=== PATIENT | female | born 1970 | race American Indian/Alaskan Native ===

== ENCOUNTER 2017-09-09 12:24 | Inpatient (IN) | payer OTHER ==
[2017-09-09] MEDS ORDERED: CATAPRES PO ONE (12:35)
[2017-09-09 13:15] LABS: Basophils # (Auto) 0.1 K/mm3 (0.0-0.1); Basophils % (Auto) 1.2 % (0.0-1.8); Eosinophils # (Auto) 0.2 K/mm3 (0.0-0.4); Eosinophils % (Auto) 2.4 % (0.0-4.3); Hematocrit 43.9 % (30.3-42.9); Hemoglobin 14.8 gm/dl (10.1-14.3); Lymphocytes # (Auto) 2.5 K/mm3 (1.2-5.4); Lymphocytes % (Auto) 36.5 % (13.4-35.0); Mean Corpuscular HGB Conc 34 % (30-34); Mean Corpuscular Hemoglobin 28 pg (28-32); Mean Corpuscular Volume 84 fl (79-97); Monocytes # (Auto) 0.5 K/mm3 (0.0-0.8); Monocytes % (Auto) 6.7 % (0.0-7.3); Platelet Count 305 K/mm3 (140-440); Red Blood Count 5.24 M/mm3 (3.65-5.03); Red Cell Distribution Width 13.7 % (13.2-15.2)
[2017-09-09 13:26] LABS: INR 0.85 (0.87-1.13)
[2017-09-09 13:41] LABS: Alanine Aminotransferase 13 units/L (7-56); Albumin 3.9 g/dL (3.9-5); BUN/Creatinine Ratio 20; Blood Urea Nitrogen 12 mg/dL (7-17); Calcium 8.8 mg/dL (8.4-10.2); Hemolysis Index 38
--- NOTE | 2017-09-09 13:58 | XRay Report ---
ROUTINE CHEST, TWO VIEWS: HISTORY: chest pain. Thoracic surgical changes are identified since 01/28/16, correlate with history. The trachea, heart, mediastinal contour, lung briggs and bony thorax are unremarkable. IMPRESSION: No acute cardiopulmonary process.
--- NOTE | 2017-09-09 14:16 | Cat Scan Report ---
FINAL REPORT PROCEDURE: CT HEAD/BRAIN WO CON TECHNIQUE: Computerized tomography of the head was performed without contrast material. HISTORY: headache, htn, left sided numb x 3 days COMPARISON: No prior studies are available for comparison. FINDINGS: No CT evidence of intracranial mass, hemorrhage, acute territorial infarction, or hydrocephalus. The intracranial arteries are symmetric in density. Calvarium is intact. Visualized paranasal sinuses and mastoids are aerated. Mild right ethmoid sinus mucosal thickening. There is fluid in the left mastoid air cells. IMPRESSION: No CT evidence of acute intracranial abnormality. Fluid in the left mastoid air cells. Correlate clinically to exclude infectious process
--- NOTE | 2017-09-09 14:35 | Emergency Department Report ---
ED Headache HPI - General Chief Complaint: Headache Stated Complaint: QUINTANA & CP Time Seen by Provider: 09/09/17 14:14 Source: patient, old records Exam Limitations: no limitations - History of Present Illness Initial Comments: 46-year-old female with a past medical history hypertension, smoker, COPD, CAD, stent, and single-vessel bypass presents to the hospital complaining of headache , hypertension, and chest. The last 3 days patient has had intermittent numbness to her left arm and left leg. This morning she developed a bad posterior headache rated 8/10 in intensity and left-sided chest heaviness. Patient states she has chronic intermittent left upper chest pain since her CABG surgery in the past. Worse with palpation. Denies alleviating factors. Patient denies nausea, vomiting, or shortness of breath. Diaphoresis at night reported. Patient's currently on her menstrual cycle. Patient has been noncompliant with all her medications the last 2 months. She does not know any of the names of her medications but does still take aspirin 81 mg. Poor stat last time she had a heart intake she had similar chest pain. Patient's declining 0.2 prior to my evaluation with improvement in blood pressure, headache, and chest pain but they are still present. 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 During this hospitalization cardiac enzymes have been negative and initial EKG with no acute changes. Cardiology was consulted and she underwent stress test that was negative for ischemia, but a repeat EKG showed deep anterolateral T-wave inversion and she continued experienced chest pain, cardiology decided to obtain cardiac CTA that revealed a questionable proximal LAD stenosis. For definitive diagnosis she underwent left cardiac catheterization that showed 99% ostial LAD stenosis for which patient was transferred emergently to [facility] for single-vessel bypass; started on heparin drip. Allergies/Adverse Reactions: Allergies No Known Allergies Allergy (Verified 09/09/17 12:25) Home Medications: Ambulatory Orders No Known Home Medications [No Reported Home Medications] 09/09/17 ED Review of Systems ROS: Stated complaint: QUINTANA & CP Other details as noted in HPI Comment: All other systems reviewed and negative ED Past Medical Hx - Past Medical History Hx Hypertension: Yes Hx Heart Attack/AMI: Yes Hx Congestive Heart Failure: No Hx Diabetes: No Hx Renal Disease: No Hx Asthma: No Hx COPD: No Additional medical history: CAD - Surgical History Hx Coronary Stent: Yes (last stent 2014) Hx Pacemaker: No Additional Surgical History: Open heart - Social History Smoking Status: Current Every Day Smoker Substance Use Type: None - Medications Home Medications: Home Medications Medication Instructions Recorded Confirmed Last Taken Type No Known Home Medications [No 09/09/17 09/09/17 Unknown History Reported Home Medications] ED Physical Exam - General Limitations: No Limitations - Other Other exam information: General: No limitations, patient is alert in no acute distress Head exam: Atraumatic, normocephalic Eyes exam: Normal appearance ENT: Moist mucous membrane, normal oropharynx Neck exam: Normal inspection, full range of motion, no meningismus nontender Respiratory exam: Mild wheezing right lung field. No tachypnea or accessory muscle use Cardiovascular: Normal rate and rhythm, reproducible left anterior chest wall tenderness Abdomen: Soft, nondistended, and nontender, with normal bowel sounds, no rebound, or guarding Extremity: Full range of motion normal inspection no deformity, tenderness, edema, or leg asymmetry Back: Normal Inspection, full range of motion, no tenderness Neurologic: Alert, oriented x3, cranial nerves intact, 5/5 upper and lower extremity strength, mild decreased sensation to touch in the left leg completely equal sensation in bilateral upper extremities. Psychiatric: normal affect, normal mood Skin: Warm, dry, intact ED Course Vital Signs 09/09/17 09/09/17 09/09/17 12:26 14:26 14:27 Temperature 98.5 F Pulse Rate 94 H 70 Respiratory 18 16 16 Rate Blood Pressure 236/122 Blood Pressure 155/86 [Right] O2 Sat by Pulse 97 99 99 Oximetry - Reevaluation(s) Reevaluation #1: 09/09/17 14:41 bp improved after clonidine - Consultations Consultation #1: 09/09/17 14:47 case d/w Chantelle lazo with [facility], will consult ED Medical Decision Making - Lab Data Result diagrams: 09/09/17 12:40 09/09/17 12:40 Lab Results 09/09/17 09/09/17 09/09/17 Range/Units 12:40 12:40 12:40 WBC 6.9 (4.5-11.0) K/mm3 RBC 5.24 H (3.65-5.03) M/mm3 Hgb 14.8 H (10.1-14.3) gm/dl Hct 43.9 H (30.3-42.9) % MCV 84 (79-97) fl MCH 28 (28-32) pg MCHC 34 (30-34) % RDW 13.7 (13.2-15.2) % Plt Count 305 (140-440) K/mm3 Lymph % (Auto) 36.5 H (13.4-35.0) % [place] % (Auto) 6.7 (0.0-7.3) % Eos % (Auto) 2.4 (0.0-4.3) % Baso % (Auto) 1.2 (0.0-1.8) % Lymph # 2.5 (1.2-5.4) K/mm3 [place] # 0.5 (0.0-0.8) K/mm3 Eos # 0.2 (0.0-0.4) K/mm3 Baso # 0.1 (0.0-0.1) K/mm3 Seg Neutrophils % 53.2 (40.0-70.0) % Seg Neutrophils # 3.7 (1.8-7.7) K/mm3 PT 12.0 L (12.2-14.9) Sec. INR 0.85 L (0.87-1.13) Sodium 140 (137-145) mmol/L Potassium 4.4 (3.6-5.0) mmol/L Chloride 101.0 (98-107) mmol/L Carbon Dioxide 24 (22-30) mmol/L Anion Gap 19 mmol/L BUN 12 (7-17) mg/dL Creatinine 0.6 L (0.7-1.2) mg/dL Estimated GFR > 60 ml/min BUN/Creatinine Ratio 20 % Glucose 95 (65-100) mg/dL Calcium 8.8 (8.4-10.2) mg/dL Total Bilirubin 0.20 (0.1-1.2) mg/dL AST 17 (5-40) units/L ALT 13 (7-56) units/L Alkaline Phosphatase 57 (35-129) units/L Total Creatine Kinase (30-135) units/L CK-MB (CK-2) (0.0-4.0) ng/mL CK-MB (CK-2) Rel Index (0-4) Troponin T (0.00-0.029) ng/mL Total Protein 7.1 (6.3-8.2) g/dL Albumin 3.9 (3.9-5) g/dL Albumin/Globulin Ratio 1.2 % 04//18 Range/Units 12:40 WBC (4.5-11.0) K/mm3 RBC (3.65-5.03) M/mm3 Hgb (10.1-14.3) gm/dl Hct (30.3-42.9) % MCV (79-97) fl MCH (28-32) pg MCHC (30-34) % RDW (13.2-15.2) % Plt Count (140-440) K/mm3 Lymph % (Auto) (13.4-35.0) % [place] % (Auto) (0.0-7.3) % Eos % (Auto) (0.0-4.3) % Baso % (Auto) (0.0-1.8) % Lymph # (1.2-5.4) K/mm3 [place] # (0.0-0.8) K/mm3 Eos # (0.0-0.4) K/mm3 Baso # (0.0-0.1) K/mm3 Seg Neutrophils % (40.0-70.0) % Seg Neutrophils # (1.8-7.7) K/mm3 PT (12.2-14.9) Sec. INR (0.87-1.13) Sodium (137-145) mmol/L Potassium (3.6-5.0) mmol/L Chloride (98-107) mmol/L Carbon Dioxide (22-30) mmol/L Anion Gap mmol/L BUN (7-17) mg/dL Creatinine (0.7-1.2) mg/dL Estimated GFR ml/min BUN/Creatinine Ratio % Glucose (65-100) mg/dL Calcium (8.4-10.2) mg/dL Total Bilirubin (0.1-1.2) mg/dL AST (5-40) units/L ALT (7-56) units/L Alkaline Phosphatase (35-129) units/L Total Creatine Kinase 93 (30-135) units/L CK-MB (CK-2) 2.0 (0.0-4.0) ng/mL CK-MB (CK-2) Rel Index 2.1 (0-4) Troponin T < 0.010 (0.00-0.029) ng/mL Total Protein (6.3-8.2) g/dL Albumin (3.9-5) g/dL Albumin/Globulin Ratio % - EKG Data -: EKG Interpreted by Me EKG shows normal: sinus rhythm Rate: normal - EKG Data When compared to previous EKG there are: changes noted (improved today compared to 01/31/16) - Radiology Data Radiology results: report reviewed read by radiologist cxr: naf ct head: IMPRESSION: No CT evidence of acute intracranial abnormality. Fluid in the left mastoid air cells. Correlate clinically to exclude infectious process - Medical Decision Making Symptoms is improving her blood pressure reduction. Patient is not compliant with all her medication with the exception of baby aspirin. She does not recall which medications she takes. She will be to the hospital for further workup and treatment. DuoNeb provided for mild wheezing - Differential Diagnosis hypertensive emergency, IA, atypical chest pain, ICH, SAH Critical Care Time: No Critical care attestation.: If time is entered above; I have spent that time in minutes in the direct care of this critically ill patient, excluding procedure time. ED Disposition Clinical Impression: Obesity (BMI 30.0-34.9), CAD (coronary artery disease), History of PTCA 1, Uncontrolled hypertension, COPD exacerbation, Hypertension, Smoker, Left sided chest pain, Left sided numbness Disposition: -09 OP ADMIT IP TO THIS HOSP Is pt being admited?: Yes Condition: Stable Time of Disposition: 14:47 (Dr Solo/hosp) - Assessment Assessment Interval: Baseline - Level of Consciousness 1a. Level of Consciousness: alert - LOC Questions 1b. LOC Questions: answers correctly - LOC Command 1c. LOC Commands: performs tasks correctly - Best Gaze 2. Best Gaze: normal - Visual 3. Visual: no visual loss - Facial Palsy 4. Facial Palsy: normal symmetrical movement - Motor Arm 5b. Motor Arm Right: no drift 5a. Motor Arm Left: no drift - Motor Leg 6a. Motor Leg Left: no drift 6b. Motor Leg Right: no drift - Limb Ataxia 7. Limb Ataxia: absent - Sensory 8. Sensory: mild/moderate sensory loss - Best Language 9. Best Language: no aphasia - Dysarthria 10. Dysarthria: normal - Extinction and Inattention 11. Extinction/Inattention: no abnormality - Scoring Total Score: 1 Stroke Severity: Minor Stroke
[2017-09-09] MEDS ORDERED: DUONEB *Not for PRN Use IH ONE (14:44)
[2017-09-09] MEDS ORDERED: MORPHINE IV PRN (15:07)
[2017-09-09] MEDS ORDERED: SODIUM CHLORIDE FLUSH SYRINGE 10 ML IV PRN ×2 (15:07)
[2017-09-09] MEDS ORDERED: NITROSTAT SL PRN (15:07)
[2017-09-09] MEDS ORDERED: ZOFRAN IV PRN (15:07)
[2017-09-09] MEDS ORDERED: PROVENTIL IH PRN (15:07)
--- NOTE | 2017-09-09 15:07 | History and Physical Report ---
History of Present Illness Chief complaint: My chest and head hurts History of present illness: 46 YO Female with HTN, Nicotine Dependence, COPD, CAD S/P Stent Placement, Medication Noncompliance, CABG, Obesity, LA, presents to ED for evaluation. Pt states that she has experienced pain in her chest, Arm/Leg pain and numbness, as well as headache for the past 3 days with worsening symptoms over the past 5 hours. Pt states that her chest pain is 8/10, worse with palpation, intermittents, not relieved with rest. Pt seen and evaluated in ED and found to have symptoms consistent with ACS, as well as uncontrolled hypertension. Pt denies fever, chills, NVD, trauma, recent ill contacts, BRBPR, Unintentional weight loss, night sweats, unilateral leg swelling, calf pain, individual/ family history of DVT/PE. PT admitted to telemetry, Cardiology team consulted in ED. Pt counseled regarding medication noncompliance. Past History Past Medical History: CAD, COPD Past Surgical History: CABG, Other (Stent placement) Social history: single Family history: diabetes, hypertension Medications and Allergies Allergies Allergy/AdvReac Type Severity Reaction Status Date / Time No Known Allergies Allergy Verified 09/09/17 12:25 Home Medications Medication Instructions Recorded Confirmed Last Taken Type No Known Home Medications [No 09/09/17 09/09/17 Unknown History Reported Home Medications] Review of Systems Constitutional: no weight loss, no weight gain, no fever, no chills Ears, nose, mouth and throat: no ear pain, no ear discharge, no tinnitis, no decreased hearing, no nose pain, no nasal congestion, no nasal discharge Breasts: no change in shape, no swelling, no mass Cardiovascular: chest pain, high blood pressure, no orthopnea, no palpitations, no edema, no syncope Respiratory: no cough, no cough with sputum, no excessive sputum, no hemoptysis Gastrointestinal: no abdominal pain, no nausea, no vomiting, no diarrhea, no constipation Genitourinary Female: no pelvic pain, no flank pain, no menorrhagia, no dysuria , no urinary frequency, no urgency Rectal: no pain, no incontinence, no bleeding Musculoskeletal: no neck stiffness, no neck pain, no shooting arm pain, no arm numbness/tingling Integumentary: no rash, no pruritis, no redness, no sores, no wounds, no jaundice Neurological: no head injury, no transient paralysis, no paralysis, no weakness , no numbness, no tingling Psychiatric: no anxiety, no memory loss, no change in sleep habits, no sleep disturbances, no insomnia, no hypersomnia Endocrine: no cold intolerance, no heat intolerance, no polyphagia, no excessive thirst, no polydipsia, no polyuria Hematologic/Lymphatic: no easy bruising, no easy bleeding, no lymphedema Allergic/Immunologic: no urticaria, no allergic rhinitis, no wheezing, no persistent infections Exam - Constitutional Vitals: Temp Pulse Resp BP Pulse Ox 98.5 F 70 16 155/86 99 09/09/17 12:26 09/09/17 14:26 09/09/17 14:27 09/09/17 14:26 09/09/17 14:27 General appearance: Present: mild distress, obese - EENT Eyes: Present: PERRL ENT: hearing intact, clear oral mucosa - Neck Neck: Present: supple, normal ROM - Respiratory Respiratory effort: normal Respiratory: bilateral: CTA - Cardiovascular Heart Sounds: Present: S1 & S2. Absent: rub, click - Extremities Extremities: pulses symmetrical, No edema Peripheral Pulses: within normal limits - Abdominal General gastrointestinal: Present: soft, non-tender, non-distended, normal bowel sounds Female genitourinary: Present: normal - Integumentary Integumentary: Present: clear, warm, dry - Musculoskeletal Musculoskeletal: gait normal, strength equal bilaterally - Psychiatric Psychiatric: appropriate mood/affect, intact judgment & insight - Neurologic Neurologic: CNII-XII intact, moves all extremities Results - Labs CBC & Chem 7: 09/09/17 12:40 09/09/17 15:16 Labs: Abnormal lab results 09/09/17 09/09/17 09/09/17 Range/Units 12:40 12:40 12:40 RBC 5.24 H (3.65-5.03) M/mm3 Hgb 14.8 H (10.1-14.3) gm/dl Hct 43.9 H (30.3-42.9) % Lymph % (Auto) 36.5 H (13.4-35.0) % PT 12.0 L (12.2-14.9) Sec. INR 0.85 L (0.87-1.13) Creatinine 0.6 L (0.7-1.2) mg/dL Assessment and Plan - Patient Problems (1) ACS (acute coronary syndrome) Current Visit: Yes Status: Acute Plan to address problem: Cardiology consulted in ED, serial cardiac enzymes, ekg, telemetry, supplemental oxygen, morphine, nitro, aspirin (2) Hypertensive urgency Current Visit: Yes Status: Acute Plan to address problem: CT Head, monitor BP q shift, resume antihypertensive therapy, neuro checks (3) Obesity Current Visit: Yes Status: Acute Qualifiers: Body mass index: BMI 35.0-35.9 Plan to address problem: Balanced diet, increased physical activity at discharge.. (4) CAD (coronary artery disease) Current Visit: Yes Status: Acute Qualifiers: Plan to address problem: S/P Stent placement, CABG, low cholesterol diet, continue current care, risk factor reduction (5) DVT prophylaxis Current Visit: Yes Status: Acute Plan to address problem: scd to ble while in bed
--- NOTE | 2017-09-09 15:11 | Consultation ---
History of Present Illness Consult date: 09/09/17 Requesting physician: EVIE GARSIA Consult reason: chest pain History of present illness: The pt is a 46-year-old female with a past medical history significant for CAD s /p CABG x 1 (BRICENO to LAD 01/[address] Sosa), hypertension, tobacco use, COPD. She has been seen by our practice on prior hospitalization but has not been compliant with OP follow up since CABG. She presented with complaints of headache, left-sided numbness and tingling, high BPs and chest pain. For the past 3 days the patient has had intermittent numbness to her left arm and left leg. This morning she developed a posterior headache and chest pain. She describes her chest pain as a left-sided, non-exertional, nonradiating pressure which has been intermittently occurring since her CABG. The pain is reproducible with palpation. She denies any SOB, palpitations, n/v, diaphoresis , dizziness or syncope. Patient has been noncompliant with all her medications the last 2 months. Following arrival to ED, BP noted to be 236/122. ECG shows NSR with no acute ischemic changes. Troponin negative for AMI x 1. Echo 05/2015 showed EF 55-60%, mild to mod LVH. LHC 01/2016 showed severe single vessel CAD with 99% ostial LAD stenosis, preserved EF. Pt referred for CABG at that time. Medications and Allergies Allergies Allergy/AdvReac Type Severity Reaction Status Date / Time No Known Allergies Allergy Verified 09/09/17 12:25 Home Medications Medication Instructions Recorded Confirmed Last Taken Type No Known Home Medications [No 09/09/17 09/09/17 Unknown History Reported Home Medications] Active Meds: Active Medications Acetaminophen (Tylenol) 650 mg PO Q4H PRN PRN Reason: Pain MILD(1-3)/Fever >100.5/QU[place]NA Albuterol (Proventil) 2.5 mg IH Q4HRT PRN PRN Reason: Shortness Of Breath Aspirin (Ecotrin) 325 mg PO QDAY MATTHIAS Morphine Sulfate (Morphine) 2 mg IV Q4H PRN PRN Reason: Pain, Moderate (4-6) Nitroglycerin (Nitrostat) 0.4 mg SL Q5M PRN PRN Reason: Chest Pain Physical Examination Vital Signs Temp Pulse Resp BP Pulse Ox 98.5 F 94 H 18 236/122 97 04/25/18 12:26 09/09/17 12:26 09/09/17 12:26 09/09/17 12:26 09/09/17 12:26 Results 09/09/17 12:40 09/09/17 15:16 Cardiac Enzymes 09/09/17 09/09/17 Range/Units 12:40 12:40 AST 17 (5-40) units/L CK-MB (CK-2) 2.0 (0.0-4.0) ng/mL Coagulation 09/09/17 Range/Units 12:40 PT 12.0 L (12.2-14.9) Sec. INR 0.85 L (0.87-1.13) CBC 09/09/17 Range/Units 12:40 WBC 6.9 (4.5-11.0) K/mm3 RBC 5.24 H (3.65-5.03) M/mm3 Hgb 14.8 H (10.1-14.3) gm/dl Hct 43.9 H (30.3-42.9) % Plt Count 305 (140-440) K/mm3 Lymph # 2.5 (1.2-5.4) K/mm3 [place] # 0.5 (0.0-0.8) K/mm3 Eos # 0.2 (0.0-0.4) K/mm3 Baso # 0.1 (0.0-0.1) K/mm3 Comprehensive Metabolic Panel 09/09/17 Range/Units 12:40 Sodium 140 (137-145) mmol/L Potassium 4.4 (3.6-5.0) mmol/L Chloride 101.0 (98-107) mmol/L Carbon Dioxide 24 (22-30) mmol/L BUN 12 (7-17) mg/dL Creatinine 0.6 L (0.7-1.2) mg/dL Glucose 95 (65-100) mg/dL Calcium 8.8 (8.4-10.2) mg/dL AST 17 (5-40) units/L ALT 13 (7-56) units/L Alkaline Phosphatase 57 (35-129) units/L Total Protein 7.1 (6.3-8.2) g/dL Albumin 3.9 (3.9-5) g/dL Assessment and Plan Assessment: Chest pain, atypical - ECG with NAF; Flor negative for AMI x 1 CAD s/p CABG x 1 (BRICENO to LAD 01/[address] Sosa) Uncontrolled hypertension H/o tobacco use - cessation encouraged COPD Left-sided numbness and tingling Headache - head CT with no acute intracranial abnormality Plan: Optimize anti-hypertensive regimen. Obtain echo. Cont to trend Flor. Plan for lexiscan MPI stress test in AM given BPs are optimized and Flor remain negative for AMI. NPO after MN. Assessment and plan reviewed with pt at bedside. The patient has been seen in conjunction with Dr. CLAYTON Rangel who agrees with the assessment and plan of care.
[2017-09-09 15:37] LABS: BUN/Creatinine Ratio 24; Blood Urea Nitrogen 12 mg/dL (7-17); Calcium 8.9 mg/dL (8.4-10.2); Hemolysis Index 40
[2017-09-09 15:40] LABS: Chol/HDL Ratio 4.5 %
[2017-09-09] MEDS: NORVASC PO SCH (17:50)
[2017-09-09] MEDS ORDERED: CATAPRES PO PRN (17:51)
[2017-09-09] MEDS ORDERED: NORVASC ONE (17:52)
[2017-09-09] MEDS ORDERED: ZESTRIL PO SCH (18:00)
[2017-09-09] MEDS: TYLENOL PO PRN (18:07)
[2017-09-09] MEDS: SODIUM CHLORIDE FLUSH SYRINGE 10 ML IV SCH (22:16)
[2017-09-09] MEDS: LOPRESSOR PO SCH (22:16)
[2017-09-10] MEDS ORDERED: LEXISCAN IV ONE ×2 (08:13→08:14)
[2017-09-10] MEDS ORDERED: ECOTRIN PO SCH (10:00)
--- NOTE | 2017-09-10 10:23 | Treadmill Report ---
NUCLEAR PERFUSION SCAN REFERRING PHYSICIAN: Dr. Solo. PROTOCOL: The patient was brought to the stress lab in a postabsorptive state, given 10 mCi of technetium 99m at rest. The patient underwent rest imaging. The patient underwent Lexiscan stress test per standard protocol. At peak stress, the patient was given 26 mCi of technetium 99m. Shortly thereafter, the patient underwent stress imaging. Raw imaging reveals mild GI artifact. No significant motion artifact. SPECT images examined carefully in the horizontal long axis, vertical long axis, and short axis views. There is normal homogenous uptake radioisotope in all reported segments. No evidence of a significant fixed or reversible perfusion defects suggestive of prior infarction or ischemia. Gated wall motion reveals normal systolic thickening, calculated ejection fraction of 53%, no TID. CONCLUSIONS: 1. Normal myocardial perfusion scan without evidence of active ischemia or prior infarction. 2. Normal left ventricular systolic performance without evidence of transient ischemic dilatation or stress-induced segmental wall motion abnormalities. JOB# [id number] EDGARDO/COBY
--- NOTE | 2017-09-10 12:00 | Progress Note ---
Assessment and Plan Assessment: Chest pain, atypical - ECG with NAF; Flor negative for AMI; currently resolved CAD s/p CABG x 1 (BRICENO to LAD 01/[address] Sosa) Uncontrolled hypertension H/o tobacco use - cessation encouraged COPD Left-sided numbness and tingling Headache - head CT with no acute intracranial abnormality Plan: S/p lexiscan MPI stress test this AM which was negative for ischemia. Echo reviewed - EF 50-55%, mod LVH, impaired relaxation. Optimize anti-hypertensive regimen - increase lisinopril. Pending BPs are optimized, pt may discharge home from cardiology standpoint this afternoon. Recommend pt to follow up in our office with Emerita Contreras NP, within 1-2 weeks of hospital discharge ([phone]). Assessment and plan reviewed with pt at bedside. The patient has been seen in conjunction with Dr. Jamison Rangel who agrees with the assessment and plan of care. Subjective Date of service: 09/10/17 Principal diagnosis: cp Interval history: pt for stress test today. no current cardiac complaints. Objective Last Vital Signs Temp 98.3 F 09/10/17 00:50 Pulse 56 L 09/10/17 04:40 Resp 18 09/10/17 04:40 BP 167/86 09/10/17 04:40 Pulse Ox 91 09/10/17 04:40 - Physical Examination General: No Apparent Distress HEENT: Positive: PERRL, Normocephaly, Mucus Membranes Moist Neck: Positive: neck supple, trachea midline Cardiac: Positive: Reg Rate and Rhythm, S1/S2 Lungs: Positive: clear to auscultation Neuro: Positive: Grossly Intact, Cranial Nerve 2-12 Intact Abdomen: Positive: Soft. Negative: Tender Skin: Positive: Clear. Negative: Rash, Wound Musculoskeletal: No Fluid Collection, No Pain, Normal Range of Motion Extremities: Absent: edema - Labs and Meds Cardiac Enzymes 09/09/17 09/09/17 Range/Units 12:40 12:40 AST 17 (5-40) units/L CK-MB (CK-2) 2.0 (0.0-4.0) ng/mL Coagulation 09/09/17 Range/Units 12:40 PT 12.0 L (12.2-14.9) Sec. INR 0.85 L (0.87-1.13) Lipids 09/09/17 Range/Units 15:16 Triglycerides 216 H (2-149) mg/dL Cholesterol 180 (50-199) mg/dL HDL Cholesterol 40 (40-59) mg/dL Cholesterol/HDL Ratio 4.50 % CBC 09/09/17 Range/Units 12:40 WBC 6.9 (4.5-11.0) K/mm3 RBC 5.24 H (3.65-5.03) M/mm3 Hgb 14.8 H (10.1-14.3) gm/dl Hct 43.9 H (30.3-42.9) % Plt Count 305 (140-440) K/mm3 Lymph # 2.5 (1.2-5.4) K/mm3 [place] # 0.5 (0.0-0.8) K/mm3 Eos # 0.2 (0.0-0.4) K/mm3 Baso # 0.1 (0.0-0.1) K/mm3 Comprehensive Metabolic Panel 09/09/17 09/09/17 Range/Units 12:40 15:16 Sodium 140 139 (137-145) mmol/L Potassium 4.4 4.5 (3.6-5.0) mmol/L Chloride 101.0 100.8 (98-107) mmol/L Carbon Dioxide 24 20 L (22-30) mmol/L BUN 12 12 (7-17) mg/dL Creatinine 0.6 L 0.5 L (0.7-1.2) mg/dL Glucose 95 92 (65-100) mg/dL Calcium 8.8 8.9 (8.4-10.2) mg/dL AST 17 (5-40) units/L ALT 13 (7-56) units/L Alkaline Phosphatase 57 (35-129) units/L Total Protein 7.1 (6.3-8.2) g/dL Albumin 3.9 (3.9-5) g/dL - Imaging and Cardiology EKG: report reviewed, image reviewed Echo: pending - Telemetry EKG Rhythm: Sinus Rhythm
[2017-09-10] MEDS ORDERED: ZESTRIL PO SCH (12:03)
--- NOTE | 2017-09-10 15:19 | Discharge Summary ---
Providers - Providers Date of Admission: 09/09/17 15:08 Date of discharge: 09/10/17 Attending physician: CHIP PAIGE 09/09/17 Consult to Cardiac Rehabilitation [CONS] Routine Reason For Exam: Phase I 09/09/17 14:46 Consult to Physician [CONS] Urgent Comment: Consulting Provider: SARITHA ALEX Physician Instructions: Reason For Exam: chest pain Primary care physician: [employer] SUPERVISOR Hospitalization Condition: Stable Hospital course: 46 YO Female with HTN, Nicotine Dependence, COPD, CAD S/P Stent Placement, Medication Noncompliance, CABG, Obesity, NH, presents to ED for evaluation. Pt states that she has experienced pain in her chest, Arm/Leg pain and numbness, as well as headache for the past 3 days with worsening symptoms over the past 5 hours prior to admission. Patient presented to the emergency department with hypertensive urgency with blood pressure 236/122. Anti-hypertensive were optimized during her hospital stay and patient's blood pressure was controlled prior to discharge. Patient underwent cardiac workup which began with serial cardiac enzymes that were negative. Cardiology services was consulted and patient underwent a Lexiscan stress test that was negative for ischemia. Echocardiogram results revealed EF 50-55%, mod LVH, impaired relaxation. Patient was clinically stable for discharge from cardiac standpoint with no further workup recommended at this time and instructed to follow up with primary care provider and collar setter overlock within 1 week of discharged. Patient advised to follow up with neurologist Dr. Hai Koch as an outpatient. Discharge diagnoses Atypical chest pain hypertensive urgency Obesity Coronary artery disease Medical non-compliance DVT prophylaxis Disposition: -01 TO HOME OR SELFCARE Time spent for discharge: 31 minutes Core Measure Documentation - Palliative Care Palliative Care/ Comfort Measures: Not Applicable - Core Measures Any of the following diagnoses?: none Exam - Constitutional Vitals: Temp Pulse Resp BP Pulse Ox 98.0 F 70 18 175/88 96 09/10/17 13:05 09/10/17 13:05 09/10/17 13:05 09/10/17 13:05 09/10/17 13:05 General appearance: Present: no acute distress, well-nourished, obese - EENT Eyes: Present: PERRL ENT: hearing intact, clear oral mucosa - Neck Neck: Present: supple, normal ROM - Respiratory Respiratory effort: normal Respiratory: bilateral: CTA - Cardiovascular Heart Sounds: Present: S1 & S2. Absent: rub, click - Extremities Extremities: pulses symmetrical, No edema Peripheral Pulses: within normal limits - Abdominal General gastrointestinal: Present: soft, non-tender, non-distended, normal bowel sounds - Integumentary Integumentary: Present: clear, warm, dry - Musculoskeletal Musculoskeletal: gait normal, strength equal bilaterally - Psychiatric Psychiatric: appropriate mood/affect, intact judgment & insight - Neurologic Neurologic: CNII-XII intact, moves all extremities Plan Diet: low fat, low cholesterol, low salt Additional Instructions: If symptoms of Left arm weakness persists, follow up with Neurologist Dr August Valles as an outpatient Follow up with: [facility] [Provider Group] - 7 Days PRIMARY CARE,MD [Primary Care Provider] - 3-5 Days LONNIE CRAFT NP [Advanced Practice Nurse] - 10 Days ([facility] ) [facility] [Staff Physician] - 10 Days Prescriptions: Gabapentin [Neurontin] 300 mg PO QHS #30 cap amLODIPine [Norvasc] 5 mg PO QDAY #30 tablet Lisinopril [Zestril TAB] 40 mg PO DAILY #30 tablet Metoprolol [Lopressor TAB] 25 mg PO BID #60 tablet Pending Studies Call MD to notify of d/c if BP systolic <160
[2017-09-10] MEDS: NORVASC PO SCH (15:51)
[2017-09-10] MEDS: LOPRESSOR PO SCH (15:56)
[2017-09-10] MEDS ORDERED: APRESOLINE IV PRN (17:26)
[2017-09-10] MEDS: TYLENOL PO PRN (18:06)
[2017-09-10] MEDS: SODIUM CHLORIDE FLUSH SYRINGE 10 ML IV SCH (18:07)
[2017-09-10 18:08] VITALS: BP 175/100
[2017-09-10] MEDS ORDERED: APRESOLINE PO SCH (22:00)
[2017-09-11] MEDS ORDERED: BABY ASPIRIN PO SCH (10:00)
== END 2017-09-10 18:40 | disposition home or self-care (01) | DRG 313 ==
LOC: ED 12:24 → 4A 15:08
PROVIDERS: ADMIT Internal Medicine; ATTEND Internal Medicine
DX: R07.89 Other chest pain (principal); J44.1 Chronic obstructive pulmonary disease with (acute) exacerbation; I25.10 Atherosclerotic heart disease of native coronary artery without angina pectoris; I10 Essential (primary) hypertension; J44.9 Chronic obstructive pulmonary disease, unspecified; R51 Headache; E66.9 Obesity, unspecified; I16.0 Hypertensive urgency; F17.200 Nicotine dependence, unspecified, uncomplicated; Z95.1 Presence of aortocoronary bypass graft; Z95.5 Presence of coronary angioplasty implant and graft; Z91.14 Patient's other noncompliance with medication regimen; I25.2 Old myocardial infarction; Z68.35 Body mass index [BMI] 35.0-35.9, adult
CPT/HCPCS: 36415; 70450; 71046; 78452; 80048; 80053; 80061; 82550; 82553; 84484; 85025; 85379; 85610; 93005; 93010; 93017; 93306; 94644; A9270-GY; A9502; J0360; J2785

== ENCOUNTER 2017-09-17 18:42 | Emergency (ER) | payer SELFPAY ==
[2017-09-17] MEDS ORDERED: CATAPRES ONE (18:56)
[2017-09-17] MEDS ORDERED: CATAPRES PO ONE (18:59)
[2017-09-17] MEDS ORDERED: TETRACAINE 0.5% ONE (20:44)
[2017-09-17] MEDS ORDERED: FUL-GLO OP ONE (20:44)
[2017-09-17] MEDS ORDERED: NORCO 10/325 PO ONE (20:55)
[2017-09-17] MEDS ORDERED: APRESOLINE IV ONE (20:56)
[2017-09-17 21:03] LABS: Alanine Aminotransferase 15 units/L (7-56); BUN/Creatinine Ratio 22; Blood Urea Nitrogen 11 mg/dL (7-17); Calcium 8.6 mg/dL (8.4-10.2); Hemolysis Index 3
[2017-09-17 21:09] LABS: Basophils # (Auto) 0.1 K/mm3 (0.0-0.1); Basophils % (Auto) 0.9 % (0.0-1.8); Eosinophils # (Auto) 0.2 K/mm3 (0.0-0.4); Eosinophils % (Auto) 2.3 % (0.0-4.3); Hematocrit 43.8 % (30.3-42.9); Hemoglobin 14.9 gm/dl (10.1-14.3); Lymphocytes # (Auto) 2.1 K/mm3 (1.2-5.4); Lymphocytes % (Auto) 31.2 % (13.4-35.0); Mean Corpuscular HGB Conc 34 % (30-34); Mean Corpuscular Hemoglobin 28 pg (28-32); Mean Corpuscular Volume 83 fl (79-97); Monocytes # (Auto) 0.4 K/mm3 (0.0-0.8); Monocytes % (Auto) 5.4 % (0.0-7.3); Platelet Count 273 K/mm3 (140-440); Red Cell Distribution Width 13.8 % (13.2-15.2)
--- NOTE | 2017-09-17 22:18 | Emergency Department Report ---
HPI - General Chief Complaint: Eye Problems Time Seen by Provider: 09/17/17 20:33 - HPI HPI: 46-year-old -Swiss female complaining of right eye pain, redness, periorbital swelling, for 2 days worse today. Patient had history of high blood pressure, recent admission for chest pain, and high blood pressure, was discharged, blood pressure pills has not been compliant. ED Past Medical Hx - Past Medical History Previous Medical History?: Yes Hx Hypertension: Yes Hx Heart Attack/AMI: Yes Hx Congestive Heart Failure: No Hx Diabetes: No Hx Renal Disease: No Hx Asthma: No Hx COPD: No Additional medical history: CAD - Surgical History Past Surgical History?: Yes Hx Coronary Stent: Yes (last stent 2014) Hx Pacemaker: No Additional Surgical History: Open heart - Social History Smoking Status: Current Every Day Smoker Substance Use Type: Prescribed - Medications Home Medications: Home Medications Medication Instructions Recorded Confirmed Last Taken Type Gabapentin [Neurontin] 300 mg PO QHS #30 cap 09/10/17 Unknown Rx Lisinopril [Zestril TAB] 40 mg PO DAILY #30 tablet 09/10/17 Unknown Rx Metoprolol [Lopressor TAB] 25 mg PO BID #60 tablet 09/10/17 Unknown Rx amLODIPine [Norvasc] 10 mg PO DAILY #30 tab 09/10/17 Unknown Rx hydrALAZINE [Apresoline TAB] 25 mg PO Q8HR #90 tab 09/10/17 Unknown Rx Ibuprofen [Motrin] 800 mg PO Q8HR PRN #14 tablet 09/17/17 Unknown Rx Polymyxin B Sulf/Trimethoprim 1 drop OD QID #1 bottle 09/17/17 Unknown Rx [Polytrim Eye Drops 05861uuhcf/0.1%] ED Review of Systems ROS: Stated complaint: EYE SWELLING Other details as noted in HPI Comment: All other systems reviewed and negative Eyes: eye pain ENT: denies: ear pain, throat pain Respiratory: denies: cough, orthopnea Cardiovascular: denies: chest pain Physical Exam - Physical Exam Vital Signs: Vital Signs 09/17/17 09/17/17 09/17/17 18:50 19:00 20:33 Temperature 97.7 F Pulse Rate 83 85 69 Respiratory 18 18 Rate Blood Pressure 206/121 206/121 Blood Pressure 190/109 [Right] O2 Sat by Pulse 96 96 Oximetry 09/17/17 09/17/1718 20:35 21:33 21:36 Temperature Pulse Rate 86 86 Respiratory 18 Rate Blood Pressure 195/99 Blood Pressure 195/99 [Right] O2 Sat by Pulse 98 Oximetry Physical Exam: - Physical Exam Physical Exam: - General Limitations: No Limitations General appearance: alert, in no apparent distress - Head Head exam: Present: atraumatic, normocephalic - Eye Eye exam: Present: Right eye redness, periorbital swelling, - ENT ENT exam: Present: mucous membranes moist - Neck Neck exam: Present: normal inspection - Respiratory Respiratory exam: Present: normal lung sounds bilaterally. Absent: respiratory distress - Cardiovascular Cardiovascular Exam: Present: normal rhythm. Absent: systolic murmur, diastolic murmur, rubs, gallop - GI/Abdominal GI/Abdominal exam: Present: soft, normal bowel sounds - Extremities Exam Extremities exam: Present: normal inspection - Back Exam Back exam: Present: normal inspection - Neurological Exam Neurological exam: Present: alert, oriented X3 - Psychiatric Psychiatric exam: normal affect and mood - Skin Skin exam: Present: warm, dry, intact, normal color. Absent: rash ED Course Vital Signs 09/17/17 09/17/17 09/17/17 18:50 19:00 20:33 Temperature 97.7 F Pulse Rate 83 85 69 Respiratory 18 18 Rate Blood Pressure 206/121 206/121 Blood Pressure 190/109 [Right] O2 Sat by Pulse 96 96 Oximetry 09/17/17 09/17/17 09/17/17 20:35 21:33 21:36 Temperature Pulse Rate 86 86 Respiratory 18 Rate Blood Pressure 195/99 Blood Pressure 195/99 [Right] O2 Sat by Pulse 98 Oximetry ED Medical Decision Making - Lab Data Result diagrams: 09/17/17 20:38 09/17/17 20:38 Critical care attestation.: If time is entered above; I have spent that time in minutes in the direct care of this critically ill patient, excluding procedure time. ED Disposition Clinical Impression: Uncontrolled hypertension, Acute right eye pain Conjunctivitis Qualifiers: Conjunctivitis type: blepharoconjunctivitis Blepharoconjunctivitis type: unspecified Laterality: right Qualified Code(s): H10.501 - Unspecified blepharoconjunctivitis, right eye Disposition: DC-01 TO HOME OR SELFCARE Is pt being admited?: No Does the pt Need Aspirin: No Condition: Stable Instructions: Hypertension (ED) Prescriptions: Ibuprofen [Motrin] 800 mg PO Q8HR PRN #14 tablet PRN Reason: Pain Polymyxin B Sulf/Trimethoprim [Polytrim Eye Drops 08582frdkz/0.1%] 1 drop OD QID #1 bottle Referrals: PRIMARY CARE, [Primary Care Provider] - 3-5 Days
[2017-09-17 22:41] VITALS: BP 170/100
== END 2017-09-17 22:40 | disposition home or self-care (01) ==
LOC: ED 18:42
DX: H10.501 Unspecified blepharoconjunctivitis, right eye (principal); I10 Essential (primary) hypertension; I25.10 Atherosclerotic heart disease of native coronary artery without angina pectoris; I25.2 Old myocardial infarction; F17.200 Nicotine dependence, unspecified, uncomplicated; Z95.818 Presence of other cardiac implants and grafts; Z79.899 Other long term (current) drug therapy
CPT/HCPCS: 36415; 80053; 85025; 96374; 99283; J0360

== ENCOUNTER 2018-10-17 21:46 | Emergency (ER) | payer BC, OTHER ==
--- NOTE | 2018-10-17 22:02 | Emergency Department Report ---
Blank Doc - Documentation Documentation: 48 y o female presents to ED cc of left sided buttock pain radiaiting down her thighs she denies injuries, fall or trauma ACC eval
[2018-10-17] MEDS ORDERED: CATAPRES ONE (22:12)
[2018-10-17] MEDS ORDERED: CATAPRES PO ONE (22:15)
[2018-10-17 23:10] LABS: Basophils # (Auto) 0.1 K/mm3 (0.0-0.1); Basophils % (Auto) 0.7 % (0.0-1.8); Eosinophils # (Auto) 0.2 K/mm3 (0.0-0.4); Hematocrit 41.9 % (30.3-42.9); Lymphocytes # (Auto) 2.3 K/mm3 (1.2-5.4); Lymphocytes % (Auto) 28.4 % (13.4-35.0); Mean Corpuscular HGB Conc 33 % (30-34); Mean Corpuscular Volume 84 fl (79-97); Monocytes # (Auto) 0.5 K/mm3 (0.0-0.8); Monocytes % (Auto) 6.7 % (0.0-7.3); Platelet Count 284 K/mm3 (140-440); Red Blood Count 4.98 M/mm3 (3.65-5.03); Red Cell Distribution Width 14.7 % (13.2-15.2)
--- NOTE | 2018-10-17 23:14 | XRay Report ---
PROCEDURE: XR CHEST ROUTINE 2V TECHNIQUE: PA and lateral chest radiographs were obtained. HISTORY: Chest Pain COMPARISONS: 09/09/2017. FINDINGS: Heart: The heart size is normal. There has been open heart surgery.. Mediastinum/Vessels: Normal. Lungs/Pleural space: Lungs are expanded and there are no infiltrates, effusions or pneumothoraces.. Bony thorax: No acute osseous abnormality. IMPRESSION: There is no acute cardiopulmonary abnormality.. This document is electronically signed by Bill Andrew MD., October 18 2018 12:12:32 AM ET
[2018-10-17 23:33] LABS: BUN/Creatinine Ratio 16; Blood Urea Nitrogen 13 mg/dL (7-17); Hemolysis Index 12
[2018-10-18] MEDS ORDERED: DECADRON IM ONE (00:05)
[2018-10-18] MEDS ORDERED: TORADOL IM ONE (00:05)
[2018-10-18] MEDS ORDERED: ZOFRAN ODT PO ONE (00:06)
[2018-10-18] MEDS ORDERED: PERCOCET 5/325 PO ONE (00:06)
--- NOTE | 2018-10-18 00:51 | Emergency Department Report ---
ED Back Pain/Injury HPI - General Chief Complaint: Extremity Injury, Lower Stated Complaint: L LEG PAIN Time Seen by Provider: 10/17/18 22:00 Source: patient Limitations: No Limitations - History of Present Illness Initial Comments: Patient is a 48-year-old -[place] female with a history of coronary artery disease status post CABG, hypertension and chronic back pain who presents to the ED with complaint of acute exacerbation of chronic low back pain that radiates to her left hip and left lower leg for the last 2 months, worse in the last 2 days. Patient states that she has been taking [id number] pain medications with no relief. Patient denies fever, chills, nausea, vomiting, fall, traumatic injury, hematuria, dizziness, neck pain, numbness and tingling o f the lower extremities bilaterally, saddle paresthesia, urinary or bowel incontinence. MD Complaint: back pain, other (left hip and leg pain) -: Gradual, month(s) (1) Similar Symptoms Previously: No Place: home Radiation: buttocks, left leg Severity scale (0 -10): 8 Quality: burning, sharp, aching Consistency: constant Improves With: none Worsens With: movement, walking Context: other (chronic and spontaneous) Associated Symptoms: difficulty walking. denies: confusion, weakness, cough, difficulty urinating, diaphoresis, incontinence, fever/chills, constipation, headaches, abdominal pain, loss of appetite, malaise, nausea/vomiting, rash, shortness of breath, syncope Treatments Prior to Arrival: NSAIDS - Related Data Previous Rx's Medication Instructions Recorded Last Taken Type Gabapentin [Neurontin] 300 mg PO QHS #30 cap 09/10/17 Unknown Rx Lisinopril [Zestril TAB] 40 mg PO DAILY #30 tablet 09/10/17 Unknown Rx Metoprolol [Lopressor TAB] 25 mg PO BID #60 tablet 09/10/17 Unknown Rx amLODIPine [Norvasc] 10 mg PO DAILY #30 tab 09/10/17 Unknown Rx hydrALAZINE [Apresoline TAB] 25 mg PO Q8HR #90 tab 09/10/17 Unknown Rx Ibuprofen [Motrin] 800 mg PO Q8HR PRN #14 tablet 09/17/17 Unknown Rx Polymyxin B Sulf/Trimethoprim 1 drop OD QID #1 bottle 09/17/17 Unknown Rx [Polytrim Eye Drops 70473hkvoq/0.1%] Baclofen 20 mg PO Q8HR PRN #24 tablet 10/18/18 Unknown Rx Gabapentin [Neurontin] 300 mg PO BID #30 cap 10/18/18 Unknown Rx Prednisone [predniSONE 10 mg 10 mg PO .TAPER #21 tab.ds.pk 10/18/18 Unknown Rx (6-Day Pack, 21 Tabs)] traMADol [Ultram] 50 mg PO Q6HR PRN #15 tablet 10/18/18 Unknown Rx Allergies Allergy/AdvReac Type Severity Reaction Status Date / Time No Known Allergies Allergy Verified 09/09/17 12:25 ED Review of Systems ROS: Stated complaint: L LEG PAIN Other details as noted in HPI Comment: All other systems reviewed and negative Constitutional: no symptoms reported, see HPI. denies: diaphoresis, fever, malaise Eyes: as per HPI. denies: eye pain, eye discharge, vision change ENT: as per HPI. denies: ear pain, throat pain, dental pain, hearing loss, epistaxis Respiratory: no symptoms reported, see HPI. denies: cough, orthopnea, SOB with exertion Cardiovascular: as per HPI. denies: chest pain, palpitations, orthopnea, edema, syncope, paroxysmal nocturnal dyspnea Endocrine: no symptoms reported, see HPI. denies: excessive sweating, flushing, increased hunger, increased thirst, increased urine, unexplained weight gain Gastrointestinal: as per HPI. denies: abdominal pain, nausea, vomiting, diarrhea, hematemesis, hematochezia Genitourinary: as per HPI. denies: urgency, dysuria, frequency, hematuria, discharge, abnormal menses, other Musculoskeletal: as per HPI, back pain, arthralgia (left hip and leg), myalgia. denies: joint swelling Skin: as per HPI. denies: rash, lesions, change in color, change in hair/nails, pruritus Neurological: as per HPI. denies: headache, weakness, numbness, paresthesias, confusion, abnormal gait Psychiatric: as per HPI. denies: anxiety, depression, auditory hallucinations, visual hallucinations Hematological/Lymphatic: as per HPI. denies: easy bruising ED Past Medical Hx - Past Medical History Previous Medical History?: Yes Hx Hypertension: Yes Hx Heart Attack/AMI: Yes (2014) Hx Congestive Heart Failure: No Hx Diabetes: No Hx Renal Disease: No Hx Asthma: No Hx COPD: No Additional medical history: CAD - Surgical History Past Surgical History?: Yes Hx Coronary Stent: Yes (last stent 2014) Hx Pacemaker: No Additional Surgical History: Open heart - Social History Smoking Status: Current Every Day Smoker - Medications Home Medications: Home Medications Medication Instructions Recorded Confirmed Last Taken Type Gabapentin [Neurontin] 300 mg PO QHS #30 cap 09/10/17 Unknown Rx Lisinopril [Zestril TAB] 40 mg PO DAILY #30 tablet 09/10/17 Unknown Rx Metoprolol [Lopressor TAB] 25 mg PO BID #60 tablet 09/10/17 Unknown Rx amLODIPine [Norvasc] 10 mg PO DAILY #30 tab 09/10/17 Unknown Rx hydrALAZINE [Apresoline TAB] 25 mg PO Q8HR #90 tab 09/10/17 Unknown Rx Ibuprofen [Motrin] 800 mg PO Q8HR PRN #14 tablet 09/17/17 Unknown Rx Polymyxin B Sulf/Trimethoprim 1 drop OD QID #1 bottle 09/17/17 Unknown Rx [Polytrim Eye Drops [id number]/0.1%] Baclofen 20 mg PO Q8HR PRN #24 tablet 10/18/18 Unknown Rx Gabapentin [Neurontin] 300 mg PO BID #30 cap 10/18/18 Unknown Rx Prednisone [predniSONE 10 mg 10 mg PO .TAPER #21 tab.ds.pk 10/18/18 Unknown Rx (6-Day Pack, 21 Tabs)] traMADol [Ultram] 50 mg PO Q6HR PRN #15 tablet 10/18/18 Unknown Rx ED Physical Exam - General Limitations: No Limitations General appearance: alert, in no apparent distress - Head Head exam: Present: atraumatic, normocephalic, normal inspection - Eye Eye exam: Present: normal appearance, PERRL, EOMI. Absent: scleral icterus, conjunctival injection, nystagmus Pupils: Present: normal accommodation - ENT ENT exam: Present: normal exam, normal orophraynx, mucous membranes moist, TM's normal bilaterally, normal external ear exam - Neck Neck exam: Present: normal inspection, full ROM. Absent: tenderness, meningism us - Respiratory Respiratory exam: Present: normal lung sounds bilaterally. Absent: respiratory distress, wheezes, rales, rhonchi, chest wall tenderness, accessory muscle use, prolonged expiratory - Cardiovascular Cardiovascular Exam: Present: regular rate, normal rhythm, normal heart sounds - GI/Abdominal GI/Abdominal exam: Present: soft, normal bowel sounds. Absent: distended, tenderness, guarding, hyperactive bowel sounds, hypoactive bowel sounds - Rectal Rectal exam: Present: deferred - Extremities Exam Extremities exam: Present: normal inspection, full ROM, tenderness (left hip and lower leg), normal capillary refill. Absent: pedal edema, joint swelling - Back Exam Back exam: Present: normal inspection, tenderness, muscle spasm, paraspinal tenderness, other (palpable lumbosacral paraspinal musculoskeletal tenderness) - Neurological Exam Neurological exam: Present: alert, oriented X3, CN II-XII intact, normal gait, reflexes normal - Psychiatric Psychiatric exam: Present: anxious - Skin Skin exam: Present: warm, dry, intact ED Course Vital Signs 10/17/18 10/17/18 10/17/18 21:56 21:59 22:11 Temperature 98.2 F 98.2 F Pulse Rate 84 84 Respiratory 18 18 Rate Blood Pressure 224/130 224/130 Blood Pressure 208/100 [Left] O2 Sat by Pulse 96 98 Oximetry 10/17/18 10/18/18 10/18/18 22:16 00:22 00:27 Temperature Pulse Rate 84 Respiratory 16 16 Rate Blood Pressure 208/100 Blood Pressure [Left] O2 Sat by Pulse Oximetry 10/18/18 00:28 Temperature Pulse Rate 75 Respiratory 16 Rate Blood Pressure Blood Pressure 154/95 [Left] O2 Sat by Pulse 96 Oximetry - Reevaluation(s) Reevaluation #1: 10/18/18 00:52 Patient presented to the ED with complaint of pain and her blood pressure was significantly elevated which she attributed to her pain. Patient was treated with clonidine 0.1 mg by mouth tablet. Labs also drawn, and patient was treated for pain in the ED. On reevaluation, patient's pain is well controlled and her blood pressure after clonidine was 154/98. Patient was discharged home on pain medications and advised to follow-up with her primary care physician in 3-5 days for reevaluation or return to the ED immediately if symptoms get worse. ED Medical Decision Making - Lab Data Result diagrams: 10/17/18 22:39 10/17/18 22:39 - Medical Decision Making Patient presented to the ED with complaint of pain and her blood pressure was significantly elevated which she attributed to her pain. Patient was treated with clonidine 0.1 mg by mouth tablet. Labs also drawn, and patient was treated for pain in the ED. Patient's symptoms don't appear to be due to chronic sciatica affecting her left hip and left lower leg. On reevaluation, patient's pain is well controlled and her blood pressure after clonidine was 154/98. Patient was discharged home on pain medications and advised to follow-up with her primary care physician in 3-5 days for reevaluation or return to the ED immediately if symptoms get worse. - Differential Diagnosis chronic low back pain with left-sided sciatica, muscle spasm of back Critical care attestation.: If time is entered above; I have spent that time in minutes in the direct care of this critically ill patient, excluding procedure time. ED Disposition Clinical Impression: Spasm of muscle of lower back Chronic low back pain with left-sided sciatica Qualifiers: Back pain laterality: left Qualified Code(s): M54.42 - Lumbago with sciatica, left side; G89.29 - Other chronic pain Disposition: TO HOME OR SELFCARE Is pt being admited?: No Does the pt Need Aspirin: No Condition: Stable Instructions: Lumbar Radiculopathy (ED), Muscle Spasm (ED), Sciatica (ED) Additional Instructions: Take medications at home, drink plenty of fluids and follow up with your primary care physician in 3-5 days for reevaluation. Return to the ED immediately if symptoms get worse. Prescriptions: Baclofen 20 mg PO Q8HR PRN #24 tablet PRN Reason: Spasms Gabapentin [Neurontin] 300 mg PO BID #30 cap Prednisone [predniSONE 10 mg (6-Day Pack, 21 Tabs)] 10 mg PO .TAPER #21 tab.ds.pk traMADol [Ultram] 50 mg PO Q6HR PRN #15 tablet PRN Reason: Pain Referrals: NASRA SHEN MD [Primary Care Provider] - 3-5 Days Time of Disposition: 00:59 Print Language: JAPANESE
[2018-10-18 01:25] VITALS: BP 154/95
== END 2018-10-18 01:50 | disposition home or self-care (01) ==
LOC: ED 21:46
DX: M54.42 Lumbago with sciatica, left side (principal); G89.29 Other chronic pain; I10 Essential (primary) hypertension; F17.200 Nicotine dependence, unspecified, uncomplicated; M79.10 Myalgia, unspecified site
CPT/HCPCS: 36415; 71046; 80048; 84484; 85025; 93005; 93010; 96372; 99284; J1100; J1885; Q0162

== ENCOUNTER 2021-06-25 14:49 | Emergency (ER) | payer SELFPAY ==
--- NOTE | 2021-06-25 16:13 | Emergency Department Report ---
Abscess Boil HPI - HPI Stated Complaint: RT NIPPLE CYST Time Seen by Provider: 06/25/21 16:02 History: Yes Pain, Yes Purulent Drainage, Yes Previous History, No Fever, No Numbness, No Foreign Body, No Insect Bite HPI: 50-year-old female with a past medical history of hypertension presents to the emergency department for evaluation of cyst to the right breast area for the past 4 to 5 days. She states that area started to have pain and swelling yesterday and today she noticed some purulent drainage from area. She states that she had similar problem several years ago Home Medications: Previous Rx's Medication Instructions Recorded Last Taken Type Gabapentin 300 mg PO QHS #30 cap 09/10/17 Unknown Rx Metoprolol [Lopressor TAB] 25 mg PO BID #60 tablet 09/10/17 Unknown Rx amLODIPine 10 mg PO DAILY #30 tab 09/10/17 Unknown Rx hydrALAZINE [Apresoline TAB] 25 mg PO Q8HR #90 tab 09/10/17 Unknown Rx lisinopriL [Zestril TAB] 40 mg PO DAILY #30 tablet 09/10/17 Unknown Rx Ibuprofen [Motrin] 800 mg PO Q8HR PRN #14 tablet 09/17/17 Unknown Rx Polymyxin B Sulf/Trimethoprim 1 drop OD QID #1 bottle 09/17/17 Unknown Rx [Polytrim Eye Drops [id number]/0.1%] Baclofen 20 mg PO Q8HR PRN #24 tablet 10/18/18 Unknown Rx Gabapentin 300 mg PO BID #30 cap 10/18/18 Unknown Rx Prednisone [predniSONE 10 mg 10 mg PO .TAPER #21 tab.ds.pk 10/18/18 Unknown Rx (6-Day Pack, 21 Tabs)] traMADoL [Ultram] 50 mg PO Q6HR PRN #15 tablet 10/18/18 Unknown Rx Ibuprofen [Motrin 800 MG tab] 800 mg PO Q8HR PRN #21 tablet 06/25/21 Unknown Rx Sulfamethoxazole/Trimethoprim 1 each PO BID 10 Days #20 tab 06/25/21 Unknown Rx [Bactrim DS TAB] Allergies/Adverse Reactions: Allergies Allergy/AdvReac Type Severity Reaction Status Date / Time No Known Allergies Allergy Verified 09/09/17 12:25 ED Review of Systems ROS: Stated complaint: RT NIPPLE CYST Other details as noted in HPI Comment: All other systems reviewed and negative Constitutional: no symptoms reported Respiratory: no symptoms reported. denies: cough, shortness of breath Cardiovascular: denies: chest pain, palpitations, dyspnea on exertion, orthopnea , edema Endocrine: no symptoms reported Gastrointestinal: denies: abdominal pain, nausea, vomiting, diarrhea Genitourinary: denies: urgency, dysuria, frequency, hematuria, discharge Musculoskeletal: denies: back pain Skin: other (Abscessed area to the right breast) Neurological: denies: headache, weakness, abnormal gait ED Past Medical Hx - Past Medical History Previous Medical History?: Yes Hx Hypertension: Yes Hx Heart Attack/AMI: Yes (2014) Hx Congestive Heart Failure: No Hx Diabetes: No Hx Renal Disease: No Hx Asthma: No Hx COPD: No Additional medical history: CAD - Surgical History Past Surgical History?: Yes Hx Coronary Stent: Yes (last stent 2014) Hx Pacemaker: No Additional Surgical History: Open heart - Social History Smoking Status: Never Smoker Substance Use Type: None - Medications Home Medications: Home Medications Medication Instructions Recorded Confirmed Last Taken Type Gabapentin 300 mg PO QHS #30 cap 09/10/17 Unknown Rx Metoprolol [Lopressor TAB] 25 mg PO BID #60 tablet 09/10/17 Unknown Rx amLODIPine 10 mg PO DAILY #30 tab 09/10/17 Unknown Rx hydrALAZINE [Apresoline TAB] 25 mg PO Q8HR #90 tab 09/10/17 Unknown Rx lisinopriL [Zestril TAB] 40 mg PO DAILY #30 tablet 09/10/17 Unknown Rx Ibuprofen [Motrin] 800 mg PO Q8HR PRN #14 tablet 09/17/17 Unknown Rx Polymyxin B Sulf/Trimethoprim 1 drop OD QID #1 bottle 09/17/17 Unknown Rx [Polytrim Eye Drops [id number]/0.1%] Baclofen 20 mg PO Q8HR PRN #24 tablet 10/18/18 Unknown Rx Gabapentin 300 mg PO BID #30 cap 10/18/18 Unknown Rx Prednisone [predniSONE 10 mg 10 mg PO .TAPER #21 tab.ds.pk 10/18/18 Unknown Rx (6-Day Pack, 21 Tabs)] traMADoL [Ultram] 50 mg PO Q6HR PRN #15 tablet 10/18/18 Unknown Rx Ibuprofen [Motrin 800 MG tab] 800 mg PO Q8HR PRN #21 tablet 06/25/21 Unknown Rx Sulfamethoxazole/Trimethoprim 1 each PO BID 10 Days #20 tab 06/25/21 Unknown Rx [Bactrim DS TAB] ED Abscess Boil Physical Exam - Exam General: Vital signs noted. No distress. Alert and acting appropriately. Front/Back of Body, Lg (Color): 1 - Abscessed area 3 cm in diameter area noted to be firm and erythematous not fluctuant no drainage noted. Area tender to touch Size: 4 cm Exam: Yes Tenderness, Yes Surrounding Cellulites/Erythema, Yes Normal Neurologic Exam, Yes Normal Circulation, No Fluctuance, No Lymphangitis, No Crepitation, No Heart Murmur ED Course Vital Signs 06/25/21 16:00 Temperature 98.1 F Pulse Rate 88 Respiratory 16 Rate Blood Pressure 201/105 O2 Sat by Pulse 99 Oximetry Critical care attestation.: If time is entered above; I have spent that time in minutes in the direct care of this critically ill patient, excluding procedure time. ED Medical Decision Making - Medical Decision Making 50-year-old female with a past medical history of hypertension presents to the emergency department for evaluation of cyst to the right breast area for the past 4 to 5 days. She states that area started to have pain and swelling yester day and today she noticed some purulent drainage from area. She states that she had similar problem several years ago Area noted to be firm and not fluctuant. No I&D required. Patient will be geura rosa with 10-day course of Bactrim DS twice a day along with naproxen twice a day for pain and swelling. She was encouraged to take medication as prescribed and follow-up with primary care provider if no improvement or worsening of symptoms. She was advised to follow-up in the ER immediately if she develops fever or any other concerning symptoms. Plan was discussed with patient and she verbalized understanding and agrees with plan. ED Disposition Clinical Impression: Abscess of right breast Disposition: HOME / SELF CARE / HOMELESS Is pt being admited?: No Does the pt Need Aspirin: No Condition: Stable Instructions: Skin Abscess, [id number] Additional Instructions: Take medications as prescribed. You can place warm, moist heat to area several times daily for 15-20 minutes at a time. Follow up with pcp. If no improvement, worsening symptoms, or if you developed fever or increased pain, return to emergency room for further evaluation. Prescriptions: Sulfamethoxazole/Trimethoprim [Bactrim DS TAB] 1 each PO BID 10 Days #20 tab Ibuprofen [Motrin 800 MG tab] 800 mg PO Q8HR PRN #21 tablet PRN Reason: Pain , Severe (7-10) Referrals: NADIRA WOODALL MD [Referring] - 3-5 Days Time of Disposition: 16:13
[2021-06-25 16:28] VITALS: BP 176/99
== END 2021-06-25 16:56 | disposition home or self-care (01) ==
LOC: ED 14:49
DX: N61.1 Abscess of the breast and nipple (principal); I10 Essential (primary) hypertension
CPT/HCPCS: 99282